=== PATIENT | male | born 1980 | race Caucasian/White ===

== ENCOUNTER 2017-10-06 22:56 | Observation (INO) | payer SELFPAY ==
--- NOTE | 2017-10-06 23:43 | EDPHYS ---
Physician Documentation [facility] Name: Christopher Melvin Age: 37 yrs Sex: Male : 1980 Arrival Date: 10/06/2017 Time: 22:57 Bed 5 Private MD: ED Physician Salomón Shook HPI: 10/06 23:26 This 37 yrs old Male presents to ER via Ambulatory with complaints of Chest santosh Pain > 30 y/o, Numbness Of Arm. 23:26 The patient or guardian reports chest pain that is located primarily in the substernal santosh area, anterior chest wall. The pain radiates to the left arm. Associated signs and symptoms: The patient has no apparent associated signs or symptoms. The chest pain is described as burning, a pressure. Duration: The patient or guardian reports a single episode, that is still ongoing. Modifying factors: The symptoms are alleviated by nothing. the symptoms are aggravated by nothing. Severity of pain: At its worst the pain was moderate in the emergency department the pain is unchanged. The patient has experienced a previous episode. Historical: - Allergies: 23:03 Bactrim DS; aa1 23:03 PENICILLINS; aa1 23:03 Sulfa (Sulfonamide Antibiotics); aa1 - Home Meds: 23:03 Paxil 20 mg Oral tab 1 tab once daily [Active]; aa1 - PMHx: 23:03 Anxiety; chest pain; Depression; aa1 - PSHx: 23:03 Surgical Incision/Drainage of abscess; aa1 - Immunization history:: Flu vaccine is not up to date. - Social history:: Smoking status: Patient/guardian denies using tobacco. - Family history:: not pertinent, pertinent for Father has/had. ROS: 23:26 Constitutional: Negative for fever, chills, and weight loss, Eyes: Negative for injury, santosh pain, redness, and discharge, ENT: Negative for injury, pain, and discharge, Neck: Negative for injury, pain, and swelling, Cardiovascular: Negative for chest pain, palpitations, and edema, Respiratory: Negative for shortness of breath, cough, wheezing, and pleuritic chest pain, Abdomen/GI: Negative for abdominal pain, nausea, vomiting, diarrhea, and constipation, Back: Negative for injury and pain, : Negative for injury, bleeding, discharge, and swelling, MS/Extremity: Negative for injury and deformity, Skin: Negative for injury, rash, and discoloration, Neuro: Negative for headache, weakness, numbness, tingling, and seizure. Exam: 23:26 Constitutional: This is a well developed, well nourished patient who is awake, alert, santosh and in no acute distress. Head/Face: Normocephalic, atraumatic. Eyes: Pupils equal round and reactive to light, extra-ocular motions intact. Lids and lashes normal. Conjunctiva and sclera are non-icteric and not injected. Cornea within normal limits. Periorbital areas with no swelling, redness, or edema. ENT: Nares patent. No nasal discharge, no septal abnormalities noted. Tympanic membranes are normal and external auditory canals are clear. Oropharynx with no redness, swelling, or masses, exudates, or evidence of obstruction, uvula midline. Mucous membranes moist. Neck: Trachea midline, no thyromegaly or masses palpated, and no cervical lymphadenopathy. Supple, full range of motion without nuchal rigidity, or vertebral point tenderness. No Meningismus. Chest/axilla: Normal chest wall appearance and motion. Nontender with no deformity. No lesions are appreciated. Cardiovascular: Regular rate and rhythm with a normal S1 and S2. No gallops, murmurs, or rubs. Normal PMI, no JVD. No pulse deficits. Respiratory: Lungs have equal breath sounds bilaterally, clear to auscultation and percussion. No rales, rhonchi or wheezes noted. No increased work of breathing, no retractions or nasal flaring. Abdomen/GI: Soft, non-tender, with normal bowel sounds. No distension or tympany. No guarding or rebound. No evidence of tenderness throughout. Back: No spinal tenderness. No costovertebral tenderness. Full range of motion. Male : Normal genitalia with no discharge or lesions. Skin: Warm, dry with normal turgor. Normal color with no rashes, no lesions, and no evidence of cellulitis. MS/ Extremity: Pulses equal, no cyanosis. Neurovascular intact. Full, normal range of motion. Neuro: Awake and alert, GCS 15, oriented to person, place, time, and situation. Cranial nerves II-XII grossly intact. Motor strength 5/5 in all extremities. Sensory grossly intact. Cerebellar exam normal. Normal gait. Psych: Awake, alert, with orientation to person, place and time. Behavior, mood, and affect are within normal limits. Vital Signs: 23:03 BP 134 / 94; Pulse 93; Resp 18; Temp 98.4; Pulse Ox 99% on R/A; Weight 104.33 kg; aa1 Height 6 ft. 0 in. (182.88 cm); Pain 8/10; 10/07 00:15 BP 123 / 86; Pulse 74; Resp 12; Pulse Ox 99% ; bp 02:00 BP 118 / 80; Pulse 66; Resp 14; Pulse Ox 99% ; bp 10/06 23:03 Body Mass Index 31.19 (104.33 kg, 182.88 cm) aa1 MDM: 10/06 23:22 Patient medically screened. [facility] 23:49 Data reviewed: vital signs, nurses notes, lab test result(s), EKG, radiologic studies, santosh plain films. 10/06 23:25 Order name: Basic Metabolic Panel [facility] 10/06 23:25 Order name: BNP [facility] 10/06 23:25 Order name: CBC with Diff [facility] 10/06 23:25 Order name: Ckmb [facility] 10/06 23:25 Order name: CPK [facility] 10/06 23:25 Order name: LFT's [facility] 10/06 23:25 Order name: Magnesium [facility] 10/06 23:25 Order name: PT-INR [facility] 10/06 23:25 Order name: Ptt, Activated [facility] 10/06 23:25 Order name: Troponin (emerg Dept Use Only) [facility] 10/06 23:25 Order name: Lipase [facility] 10/06 23:26 Order name: Basic Metabolic Panel ED[facility] 10/06 23:26 Order name: BNP B-Type Natriuretic Peptide [facility] 10/06 23:26 Order name: CBC with Automated Diff [facility] 10/06 23:25 Order name: XRAY Chest (1 view) [facility] 10/06 23:25 Order name: EKG; Complete Time: 23:26 [facility] 10/06 23:25 Order name: Cardiac monitoring; Complete Time: 00:29 [facility] 10/06 23:25 Order name: EKG - Nurse/Tech; Complete Time: 00:29 [facility] 10/06 23:25 Order name: IV Saline Lock; Complete Time: 00:29 [facility] 10/06 23:25 Order name: Labs collected and sent; Complete Time: 00:29 [facility] 10/06 23:25 Order name: O2 Per Protocol; Complete Time: 00:28 [facility] 10/06 23:48 Order name: CONS Physician Consult EDPR 10/07 00:25 Order name: Urine Dipstick--Ancillary (enter results) rg2 10/07 01:13 Order name: Urine Dipstick-Ancillary EDPR 10/06 23:25 Order name: O2 Sat Monitoring; Complete Time: 00:28 [facility] 10/06 23:25 Order name: Urine Dipstick-Ancillary (obtain specimen); Complete Time: 00:24 [facility] Administered Medications: 23:49 Drug: NS 0.9% 1000 ml Route: IV; Rate: 125 ml/hr; Site: right forearm; bp 10/07 00:27 Follow up: IV Status: Infusion continued upon admission bp 10/06 23:49 Drug: Aspirin Chewable Tablet 324 mg Route: PO; bp 10/07 00:27 Follow up: Response: No adverse reaction bp 10/06 23:49 Drug: Lopressor (metoprolol TARTRATE) 50 mg Route: PO; bp 10/07 00:27 Follow up: Response: No adverse reaction bp 10/06 23:50 Drug: morphine 4 mg Route: IVP; Site: right forearm; bp 10/07 00:27 Follow up: Response: Pain is decreased bp 10/06 23:50 Drug: Zofran 4 mg Route: IVP; Site: right forearm; bp 10/07 00:28 Follow up: Response: No adverse reaction bp 00:26 Drug: Lovenox 100 mg Route: Sub-Q; Site: right lower abdomen; bp 00:28 Follow up: Response: No adverse reaction bp Disposition: 10/06/17 23:43 Hospitalization ordered by Zack Ha for Observation. Preliminary diagnosis is Other chest pain. - Bed requested for Telemetry/MedSurg (observation). - Status is Observation. bp - Condition is Fair. - Problem is new. - Symptoms have improved. UTI on Admission? No Signatures: Dispatcher [employer] EDPR Shawna Almanzar, RN RN aa1 Salomón Shook MD MD cha Garcia, Cindy, RN RN cg Randall Bass RN RN bp
--- NOTE | 2017-10-06 23:43 | ER ---
Nurse's Notes [facility] Name: Christopher Melvin Age: 37 yrs Sex: Male : 1980 Arrival Date: 10/06/2017 Time: 22:57 Bed 5 Private MD: Diagnosis: Other chest pain Presentation: 10/06 23:00 Presenting complaint: Patient states: CP that radiates to L shoulder and neck approx 1 aa1 hr [employer]. Transition of care: patient was not received from another setting of care. Onset of symptoms was October 06, 2017. Care prior to arrival: None. 23:00 Method Of Arrival: Ambulatory aa1 23:00 Acuity: CARIE 3 aa1 Triage Assessment: 23:03 General: Appears in no apparent distress. comfortable, Behavior is calm, cooperative, aa1 appropriate for age. Historical: - Allergies: 23:03 Bactrim DS; aa1 23:03 PENICILLINS; aa1 23:03 Sulfa (Sulfonamide Antibiotics); aa1 - Home Meds: 23:03 Paxil 20 mg Oral tab 1 tab once daily [Active]; aa1 - PMHx: 23:03 Anxiety; chest pain; Depression; aa1 - PSHx: 23:03 Surgical Incision/Drainage of abscess; aa1 - Immunization history:: Flu vaccine is not up to date. - Social history:: Smoking status: Patient/guardian denies using tobacco. - Family history:: not pertinent, pertinent for Father has/had. Screenin/31 00:30 Abuse screen: Denies threats or abuse. Denies injuries from another. Nutritional bp screening: No deficits noted. Tuberculosis screening: No symptoms or risk factors identified. Fall Risk None identified. Assessment: 10/06 23:10 General: Appears distressed, comfortable, Behavior is cooperative, appropriate for age, bp anxious. Pain: Complains of pain in chest Pain radiates to neck Pain began 3 hours ago. Neuro: Level of Consciousness is awake, alert, obeys commands, Oriented to person, place, time, situation, Appropriate for age. Cardiovascular: Rhythm is sinus rhythm. Respiratory: Airway is patent Respiratory effort is even, unlabored, Respiratory pattern is regular, symmetrical. GI: No deficits noted. : No signs and/or symptoms were reported regarding the genitourinary system. EENT: No deficits noted. Derm: No deficits noted. Musculoskeletal: Circulation, motion, and sensation intact. Range of motion: intact in all extremities. Vital Signs: 23:03 BP 134 / 94; Pulse 93; Resp 18; Temp 98.4; Pulse Ox 99% on R/A; Weight 104.33 kg; aa1 Height 6 ft. 0 in. (182.88 cm); Pain 8/10; 10/07 00:15 BP 123 / 86; Pulse 74; Resp 12; Pulse Ox 99% ; bp 02:00 BP 118 / 80; Pulse 66; Resp 14; Pulse Ox 99% ; bp 10/06 23:03 Body Mass Index 31.19 (104.33 kg, 182.88 cm) aa1 ED Course: 10/06 22:57 Patient arrived in ED. am2 23:01 Triage completed. aa1 23:03 Arm band placed on left wrist. aa1 23:17 Randall Bass, NICK is Primary Nurse. bp 23:22 Salomón Shook MD is Attending Physician. [facility] 23:30 Inserted saline lock: 20 gauge in right forearm, using aseptic technique. bp 23:42 Zack Ha MD is Hospitalizing Provider. [facility] 10/07 00:03 X-ray completed. Portable x-ray completed in exam room. Patient tolerated procedure kc2 well. 00:30 Patient has correct armband on for positive identification. Placed in gown. Bed in low bp position. Call light in reach. Side rails up X2. youth nutritional monitor on. Pulse ox on. NIBP on. 00:30 No provider procedures requiring assistance completed. Patient admitted, IV remains in bp place. Patient maintains SpO2 saturation greater than 95% on room air. Administered Medications: 10/06 23:49 Drug: NS 0.9% 1000 ml Route: IV; Rate: 125 ml/hr; Site: right forearm; bp 10/07 00:27 Follow up: IV Status: Infusion continued upon admission bp 10/06 23:49 Drug: Aspirin Chewable Tablet 324 mg Route: PO; bp 10/07 00:27 Follow up: Response: No adverse reaction bp 10/06 23:49 Drug: Lopressor (metoprolol TARTRATE) 50 mg Route: PO; bp 10/07 00:27 Follow up: Response: No adverse reaction bp 10/06 23:50 Drug: morphine 4 mg Route: IVP; Site: right forearm; bp 10/07 00:27 Follow up: Response: Pain is decreased bp 10/06 23:50 Drug: Zofran 4 mg Route: IVP; Site: right forearm; bp 10/07 00:28 Follow up: Response: No adverse reaction bp 00:26 Drug: Lovenox 100 mg Route: Sub-Q; Site: right lower abdomen; bp 00:28 Follow up: Response: No adverse reaction bp Outcome: 10/06 23:43 Decision to Hospitalize by Provider. santosh 10/07 02:17 Admitted to Tele accompanied by tech, via wheelchair, room 213, with chart, Report bp called to AI ROMERO Condition: stable Instructed on the need for admit. 02:31 Patient left the ED. bp Signatures: Shawna Almanzar, RN RN aa1 Salomón Shook MD MD cha Carr, Kelsie 2 Domenica Pop am2 Randall Bass RN RN bp
[2017-10-06 23:56] LABS: Absolute Lymphocytes (CBC) 2.1 K/uL (0.7-4.9); Absolute Monocytes 0.6 K/uL (0.1-1.3); Absolute Neutrophil 3.7 K/uL (1.8-8.0); Basophils % 0.5 % (0-1.3); Hematocrit 40.6 % (39.6-49.0); MCH 31.6 pg (27.0-35.0); MCV 92.6 fL (80-100); MPV 10.1 fL (7.6-11.3); Monocytes % 9.1 % (3.3-12.3); RBC Red Blood Cell Count 4.38 M/uL (4.33-5.43)
[2017-10-07] LABS: Protime INR 1.09
[2017-10-07] MEDS ORDERED: ASPIRIN 81 MG CHEWABLE TABLET ONE
[2017-10-07 00:01] LABS: Bicarbonate 27 mEq/L (21-31); Glucose Level 108 mg/dL (65-120); Lipase 14 U/L (22-51); Potassium 3.6 mEq/L (3.6-5.0); Sodium Level 138 mEq/L (135-145)
[2017-10-07] MEDS ORDERED: NA CHLORIDE 0.9% 1,000 ML ONE (00:01)
[2017-10-07] MEDS ORDERED: MORPHINE 4 MG/ML SYR ONE (00:01)
[2017-10-07] MEDS ORDERED: ONDANSETRON 4 MG/2 ML VIAL ONE (00:01)
[2017-10-07] MEDS ORDERED: METOPROLOL TAR 50 MG TAB ONE (00:01)
[2017-10-07 00:08] LABS: ALT/SGPT 28 IU/L (10-60); AST/SGOT 27 IU/L (10-42); Albumin 4.4 g/dL (3.2-5.5); Alkaline Phosphatase 62 IU/L (42-121); BUN Blood Urea Nitrogen 9 mg/dL (6-20); Bilirubin Direct 0.1 mg/dL (0-0.2); Bilirubin Total 0.9 mg/dL (0.3-1.2); Creatine Phosphokinase 74 IU/L (22-269); Glomerular Filtration Rate > 90 mL/min (=/>90); Magnesium 1.6 mg/dL (1.8-2.5); Protein, Total 7.2 g/dL (6.0-8.3)
[2017-10-07 00:09] LABS: CKMB Creatine Kinase MB 0.8 ng/ml (0.3-4.0)
[2017-10-07] MEDS ORDERED: ENOXAPARIN 100 MG/ML SYR SQ ONE (00:38)
[2017-10-07] MEDS ORDERED: MORPHINE 4 MG/ML SYR IV PRN (00:41)
[2017-10-07] MEDS ORDERED: ALPRAZOLAM 0.25 MG TABLET PO PRN (00:41)
[2017-10-07] MEDS ORDERED: ACETAMINOPHEN 500 MG TAB PO PRN (00:41)
[2017-10-07 01:13] LABS: Urine Blood NEGATIVE (NEG); Urine Glucose NEGATIVE (NEG); Urine Protein NEGATIVE (NEG); Urine Specific Gravity 1.015 (1.005-1.030); Urine pH 7.5 (5.0-7.0)
[2017-10-07 03:00] VITALS: BMI 33.5
[2017-10-07 04:44] VITALS: O2SAT 98
[2017-10-07] MEDS ORDERED: SODIUM CHLORIDE 0.9% 10ML INJ IV PRN (07:25)
[2017-10-07] MEDS ORDERED: PANTOPRAZOLE 40 MG INJ IVP ONE (07:25)
[2017-10-07] MEDS ORDERED: HYDROCORTISONE SUC 100 MG INJ IV ONE (07:25)
--- NOTE | 2017-10-07 07:43 | P.HP ---
Certification for Inpatient Patient admitted to: Observation With expected LOS: <2 Midnights Patient will require the following post-hospital care: None Practitioner: I am a practitioner with admitting privileges, knowledge of patient current condition, hospital course, and medical plan of care. Services: Services provided to patient in accordance with Admission requirements found in Title 42 Section 412.3 of the Code of Federal Regulations Patient History Date of Service: 10/07/17 Reason for admission: Chest pain rule out acute coronary syndrome History of Present Illness: Patient is a 37-year-old gentleman who came into the hospital with chest discomfort. Pain was mainly in the sternal region and the left shoulder. Patient was recently in the hospital couple months ago and took her medicine stress test did not reveal any abnormalities. Patient states this pain never went away completely. It was improved however over the last 24 hr the pain returned, and it has gotten progressively worse so he came into the hospital for further evaluation. In the emergency room his EKG and troponins have not revealed any abnormalities. His pain is not reproducible. He said it does not worsen with movement. He has no siblings with heart disease although he does have parents to have some cardiac issues. At this time he will be admitted for serial troponins and EKG. If his workup is negative he should be able to go home. Allergies Penicillins Allergy (Verified 10/07/17 02:44) Unknown sulfamethoxazole [From Bactrim] Allergy (Verified 11/21/16 00:47) SWELLING / HIVES trimethoprim [From Bactrim] Allergy (Verified 11/21/16 00:47) SWELLING / HIVES Sulfa (Sulfonamid Allergy (Uncoded 10/07/17 02:35) Unknown Home Medications: Paroxetine HCl [Paxil*] 20 mg PO DAILY #30 tab 08/28/17 - Past Medical/Surgical History Has patient received pneumonia vaccine in the past: No Diabetic: No -: Depression -: Urethritis -: Anxiety -: Groin infection 2009 - Family History Mother Medical History: Hypertension, Diabetes Father Medical History: Hypertension - Social History Smoking Status: Current some day smoker Alcohol use: No CD- Drugs: No Place of Residence: Home Review of Systems 10-point ROS is otherwise unremarkable Physical Examination - Vital Signs Temperature: 98 F Blood Pressure: 123/75 Pulse: 63 Respirations: 16 Pulse Ox (%): 98 - Physical Exam General: Alert, In no apparent distress, Oriented x3 HEENT: Atraumatic, PERRLA, Mucous membr. moist/pink, EOMI, Sclerae nonicteric Neck: Supple, 2+ carotid pulse no bruit, No LAD, Without JVD or thyroid abnormality Respiratory: Clear to auscultation bilaterally, Normal air movement Cardiovascular: Regular rate/rhythm, Normal S1 S2, No murmurs Gastrointestinal: Normal bowel sounds, Soft and benign, Non-distended, No tenderness Musculoskeletal: No clubbing, No swelling, No tenderness Integumentary: No rashes Neurological: Normal gait, Normal speech, Normal strength at 5/5 x4 extr, Normal tone, Sensation intact, Cranial nerves 3-12 intact, Normal affect Lymphatics: No axilla or inguinal lymphadenopathy - Studies Laboratory Data (last 24 hrs) 10/06/17 23:35: PT 12.9 H, INR 1.09, APTT 30.8 10/06/17 23:35: WBC 6.5, Hgb 13.8, Hct 40.6, Plt Count 201 10/06/17 23:35: B-Natriuretic Peptide < 10 10/06/17 23:35: Sodium 138, Potassium 3.6, BUN 9, Creatinine 0.88, Glucose 108, Magnesium 1.6 L, Total Bilirubin 0.9, AST 27, ALT 28, Alkaline Phosphatase 62, Lipase 14 L Assessment & Plan - Problems (Diagnosis) (1) Chest pain, rule out acute myocardial infarction Current Visit: Yes Status: Acute (2) GERD (gastroesophageal reflux disease) Onset Date: 03/27/17 Current Visit: No Status: Chronic (3) Hypertension Onset Date: 03/27/17 Current Visit: No Status: Chronic Qualifiers: (4) Tobacco abuse Onset Date: 04/17/14 Current Visit: No Status: Chronic - Plan 1. Serial troponins and EKG 2. Recent stress test was normal. Cardiac workup has been negative. 3. Will start patient on anti-inflammatory. May add a muscle relaxer. 4. If his cardiac workup is negative he should be able to go home for outpatient follow-up. Discharge Plan: Home Plan to discharge in: 24 Hours - Advance Directives Does patient have a Living Will: No Does patient have a Durable POA for Healthcare: No - Code Status/Comfort Care Code Status Assessed: Yes Code Status: Full Code Critical Care: No Time Spent Managing PTS Care (In Minutes): 50
[2017-10-07] MEDS ORDERED: INFLUENZA VACCINE (for 5y+) 0.5 ML DOSE IMVAC ONE (08:00)
[2017-10-07 08:59] VITALS: BP 115/70; TEMP 97.5
[2017-10-07] MEDS ORDERED: METOPROLOL TAR 50 MG TAB PO SCH (09:00)
[2017-10-07] MEDS ORDERED: ASPIRIN EC 81 MG TAB PO SCH (09:00)
[2017-10-07] MEDS ORDERED: ENOXAPARIN 40 MG/0.4 ML SQ SCH (09:00)
--- NOTE | 2017-10-07 12:31 | RAD REPORT ---
EXAM DESCRIPTION: RAD - Chest Single View - 10/07/2017 2:57 am CLINICAL HISTORY: Chest pain. COMPARISON: 08/27/2017 FINDINGS: Portable technique limits examination quality. The lungs are grossly clear. The heart is normal in size. No displaced fractures. IMPRESSION: No acute intrathoracic process suspected.
--- NOTE | 2017-10-08 12:52 | EKG ---
Test Date: 2017-10-06 Test Time: 23:23:07 Night Time Nanny: BP MEASUREMENT RESULTS: Intervals: Rate: 78 OH: 186 QRSD: 88 QT: 368 QTc: 419 [place]: P: 61 OH: 186 QRS: 60 T: 63 INTERPRETIVE STATEMENTS: Normal sinus rhythm Normal ECG Compared to ECG 08/27/2017 09:30:53 No significant changes Electronically Signed On 10-08-17 12:51:31 CDT by Francisco Cruz
== END 2017-10-07 13:15 | disposition home or self-care (01) ==
LOC: ER 22:56 → ERHOLD 23:45 → 2ND 10-07 01:13
PROVIDERS: ADMIT Hospitalist; ATTEND Hospitalist
DX: F17.210 Nicotine dependence, cigarettes, uncomplicated; F41.8 Other specified anxiety disorders; R07.9 Chest pain, unspecified; K21.9 Gastro-esophageal reflux disease without esophagitis; Z88.0 Allergy status to penicillin; Z88.2 Allergy status to sulfonamides; I10 Essential (primary) hypertension
CPT/HCPCS: 36415; 71045; 80048; 80061; 80076; 81003; 82550; 82553; 83690; 83735; 83880; 84484; 85025; 85610; 85730; 93005; 96361; 96372; 96374; 96375; 99285; C9113; G0378; J1650; J1720; J2405; J7030

== ENCOUNTER 2018-10-09 20:54 | Emergency (ER) | payer SELFPAY ==
[2018-10-09 22:08] LABS: Barbiturates NEGATIVE (NEGATIVE); Benzodiazepines NEGATIVE (NEGATIVE); Cocaine NEGATIVE (NEGATIVE); METHAMPHETAM NEGATIVE (NEGATIVE); Methadone NEGATIVE (NEGATIVE); Opiates NEGATIVE (NEGATIVE); Phencyclidine NEGATIVE (NEGATIVE); THC Cannibis NEGATIVE (NEGATIVE)
[2018-10-09 22:15] LABS: Urine Blood NEGATIVE (NEG); Urine Glucose TRACE (NEG); Urine Protein NEGATIVE (NEG); Urine Specific Gravity 1.025 (1.005-1.030); Urine pH 5.5 (5.0-7.0)
[2018-10-09 22:28] LABS: Absolute Lymphocytes (CBC) 3.2 K/uL (0.7-4.9); Absolute Monocytes 0.9 K/uL (0.1-1.3); Absolute Neutrophil 5.1 K/uL (1.8-8.0); Basophils % 0.7 % (0-1.3); Eosinophils % 1.9 % (0-4.4); Hematocrit 42.6 % (39.6-49.0); Lymphocytes % 33.7 % (15.3-44.8); Monocytes % 9.6 % (3.3-12.3); RBC Red Blood Cell Count 4.44 M/uL (4.33-5.43)
[2018-10-09 22:33] LABS: Protime INR 0.99
[2018-10-09 22:47] LABS: ALT/SGPT 39 U/L (12-78); AST/SGOT 21 U/L (15-37); Albumin 3.9 g/dL (3.4-5.0); Alkaline Phosphatase 79 U/L (45-117); BUN Blood Urea Nitrogen 16 mg/dL (7-18); Bicarbonate 28 mmol/L (21-32); Bilirubin Direct < 0.1 mg/dL (0-0.2); Bilirubin Total 0.2 mg/dL (0.2-1.0); Glucose Level 102 mg/dL (74-106); Magnesium 1.8 mg/dL (1.8-2.4); NT PRO-BNP 9 pg/mL (<125); Potassium 3.8 mmol/L (3.5-5.1); Protein, Total 7.5 g/dL (6.4-8.2); Sodium Level 140 mmol/L (136-145); Troponin (Emerg Dept Use Only) < 0.02 ng/mL (0.0-0.045)
[2018-10-09] MEDS ORDERED: KETOROLAC 30 MG/ML INJ ONE (23:26)
--- NOTE | 2018-10-10 00:53 | EDPHYS ---
Physician Documentation [facility] Name: Christopher Melvin Age: 38 yrs Sex: Male : 1980 Arrival Date: 10/09/2018 Time: 20:56 Bed 25 Private MD: ED Physician Sathish Terrazas HPI: 10/10 03:20 This 38 yrs old Male presents to ER via Wheelchair with complaints of tw4 head,neck,back,chest pain. 03:20 The patient or guardian reports chest pain that is located primarily in the anterior tw4 chest wall. Onset: today. The pain does not radiate. Associated signs and symptoms: The patient has no apparent associated signs or symptoms. The chest pain is described as sharp. Severity of pain: At its worst the pain was mild in the emergency department the pain. Historical: - Allergies: 10/09 21:13 Bactrim DS; ca1 21:13 PENICILLINS; ca1 21:13 Sulfa (Sulfonamide Antibiotics); ca1 - Home Meds: 21:13 Paxil 20 mg Oral tab 1 tab once daily [Active]; Meclizine Oral [Active]; ca1 - PMHx: 21:13 Anxiety; chest pain; Depression; ca1 - PSHx: 21:13 Surgical Incision/Drainage of abscess; ca1 - Immunization history:: Flu vaccine is not up to date. - Social history:: Smoking status: Patient uses tobacco products, switched to vape 11 months ago. . - Ebola Screening: : No symptoms or risks identified at this time. ROS: 10/10 03:20 Constitutional: Negative for fever, chills, and weight loss, Eyes: Negative for injury, tw4 pain, redness, and discharge, Respiratory: Negative for shortness of breath, cough, wheezing, and pleuritic chest pain, Abdomen/GI: Negative for abdominal pain, nausea, vomiting, diarrhea, and constipation. MS/Extremity: Negative for injury and deformity, Skin: Negative for injury, rash, and discoloration, Neuro: Negative for headache, weakness, numbness, tingling, and seizure. Cardiovascular: Positive for chest pain, Negative for edema, orthopnea, paroxysmal nocturnal dyspnea. Exam: 03:20 Constitutional: This is a well developed, well nourished patient who is awake, alert, tw4 and in no acute distress. Head/Face: Normocephalic, atraumatic. Chest/axilla: Normal chest wall appearance and motion. Nontender with no deformity. No lesions are appreciated. Cardiovascular: Regular rate and rhythm with a normal S1 and S2. No gallops, murmurs, or rubs. Normal PMI, no JVD. No pulse deficits. Respiratory: Lungs have equal breath sounds bilaterally, clear to auscultation and percussion. No rales, rhonchi or wheezes noted. No increased work of breathing, no retractions or nasal flaring. Abdomen/GI: Soft, non-tender, with normal bowel sounds. No distension or tympany. No guarding or rebound. No evidence of tenderness throughout. Back: No spinal tenderness. No costovertebral tenderness. Full range of motion. MS/ Extremity: Pulses equal, no cyanosis. Neurovascular intact. Full, normal range of motion. Neuro: Awake and alert, GCS 15, oriented to person, place, time, and situation. Cranial nerves II-XII grossly intact. Motor strength 5/5 in all extremities. Sensory grossly intact. Cerebellar exam normal. Normal gait. Vital Signs: 10/09 21:13 BP 147 / 97; Pulse 112; Resp 19; Temp 98.4; Pulse Ox 99% on R/A; Weight 108.86 kg; ca1 Height 6 ft. 0 in. (182.88 cm); Pain 8/10; 22:26 BP 128 / 86 LA; Pulse 91; Resp 19 S; Pulse Ox 100% on R/A; rv 23:00 BP 112 / 58 LA; Pulse 88; Resp 18 S; Pulse Ox 100% on R/A; rv 23:30 BP 136 / 77; Pulse 89; Resp 17 S; Pulse Ox 100% on R/A; rv 10/10 00:00 BP 104 / 63 LA; Pulse 83; Resp 17 S; Pulse Ox 100% on R/A; rv 00:30 BP 122 / 78 LA; Pulse 77; Resp 17 S; Pulse Ox 100% on R/A; rv 01:00 BP 123 / 68 LA; Pulse 81; Resp 18 S; Pulse Ox 100% on R/A; rv 10/09 21:13 Body Mass Index 32.55 (108.86 kg, 182.88 cm) ca1 MDM: 10/09 21:23 Patient medically screened. tw4 10/10 03:20 Differential diagnosis: abnormal EKG, acute myocardial infarction, acute pericarditis, tw4 cholecystitis, Cholelithiasis costochondritis, pulmonary embolus, stable angina, thoracic aortic disection, unstable angina. Data reviewed: vital signs, nurses notes. Data interpreted: Pulse oximetry: Interpretation:. Test interpretation: by ED physician or midlevel provider: ECG. Counseling: I had a detailed discussion with the patient and/or guardian regarding: the historical points, exam findings, and any diagnostic results supporting the discharge/admit diagnosis. 10/09 21:22 Order name: Basic Metabolic Panel; Complete Time: 00:30 10/10 00:30 Interpretation: Normal except: GFR 87. 10/09 21:22 Order name: CBC with Diff; Complete Time: 00:30 [facility] 10/10 00:30 Interpretation: Normal except: MCV 96.0. 10/09 21:22 Order name: LFT's; Complete Time: 00:30 [facility] 10/10 00:30 Interpretation: Normal except: GLOB 3.6. 10/09 21:22 Order name: Magnesium; Complete Time: 00:30 10/10 00:30 Interpretation: Within normal limits: MG 1.8. 10/09 21:22 Order name: NT PRO-BNP; Complete Time: 00:30 [facility] 10/10 00:30 Interpretation: Within normal limits: NT PRO-BNP 9. 10/09 21:22 Order name: PT-INR; Complete Time: 00:30 10/10 00:30 Interpretation: Within normal limits: PT 11.7. 10/09 21:22 Order name: Troponin (emerg Dept Use Only); Complete Time: 00:31 10/10 00:31 Interpretation: Within normal limits: TROPED < 0.02. 10/09 21:22 Order name: XRAY Chest (1 view) 10/09 21:22 Order name: EKG; Complete Time: 21:23 10/09 21:22 Order name: Cardiac monitoring; Complete Time: 21:39 10/09 21:22 Order name: EKG - Nurse/Tech; Complete Time: 21:39 10/09 21:22 Order name: Urine Drug Screen; Complete Time: 00:31 10/10 00:31 Interpretation: Within normal limits. tw4 10/09 21:41 Order name: Urine Dipstick--Ancillary (enter results) mw2 10/09 21:22 Order name: IV Saline Lock; Complete Time: 21:39 tw4 10/09 21:22 Order name: Labs collected and sent; Complete Time: 21:39 tw4 10/09 21:22 Order name: O2 Per Protocol; Complete Time: 21:39 tw4 10/09 21:22 Order name: O2 Sat Monitoring; Complete Time: 21:39 tw4 Administered Medications: 10/09 23:16 Drug: TORadol 30 mg Route: IVP; Site: right antecubital; rv 23:57 Follow up: Response: Pain is unchanged, physician notified Disposition: 10/10/18 00:53 Discharged to Home. Impression: Chest pain, unspecified. - Condition is Stable. - Discharge Instructions: Nonspecific Chest Pain, Chest Wall Pain, Pain Without a Known Cause. - Prescriptions for Ibuprofen 600 mg Oral Tablet - take 1 tablet by ORAL route every 6 hours As needed take with food; 30 tablet. - Medication Reconciliation Form, Thank You Letter, Antibiotic Education, Prescription Opioid Use form. - Follow up: Private Physician; When: Upon discharge from the Emergency Department; Reason: If symptoms return, Recheck today's complaints, Continuance of care. - Problem is new. - Symptoms have improved. Signatures: Dispatcher [employer] Sathish Sarmiento MD MD tw4 Pablo Pena RN RN rv Acob, Cheryl, RN RN [facility] Kristal Foreman Corrections: (The following items were deleted from the chart) 10/10 01:03 00:53 10/10/2018 00:53 Discharged to Home. Impression: Chest pain, unspecified. rv Condition is Stable. Forms are Medication Reconciliation Form, Thank You Letter, Antibiotic Education, Prescription Opioid Use. Follow up: Private Physician; When: Upon discharge from the Emergency Department; Reason: If symptoms return, Recheck today's complaints, Continuance of care. Problem is new. Symptoms have improved. tw4
--- NOTE | 2018-10-10 00:53 | ER ---
Nurse's Notes [facility] Name: Christopher Melvin Age: 38 yrs Sex: Male : 1980 Arrival Date: 10/09/2018 Time: 20:56 Bed 25 Private MD: Diagnosis: Chest pain, unspecified Presentation: 10/09 21:00 Presenting complaint: Patient states: C/O chest pain since 1900 last night, feels like ca1 somebody pressing on the left side of his sternum. C/O of neck pain that feels like pushing upwards to the head. Transition of care: patient was not received from another setting of care. Onset of symptoms was October 08, 2018 at 19:00. Risk Assessment: Do you want to hurt yourself or someone else? Patient reports no desire to harm self or others. Initial Sepsis Screen: Does the patient meet any 2 criteria? No. Patient's initial sepsis screen is negative. Does the patient have a suspected source of infection? No. Patient's initial sepsis screen is negative. Care prior to arrival: None. 21:00 Method Of Arrival: Wheelchair ca1 21:00 Acuity: CARIE 3 ca1 Triage Assessment: 21:13 General: Appears in no apparent distress. comfortable, Behavior is calm, cooperative, ca1 appropriate for age. Pain: Complains of pain in chest Pain radiates to back Pain currently is 8 out of 10 on a pain scale. Quality of pain is described as pressure, Pain began 1 day ago. Historical: - Allergies: 21:13 Bactrim DS; ca1 21:13 PENICILLINS; ca1 21:13 Sulfa (Sulfonamide Antibiotics); ca1 - Home Meds: 21:13 Paxil 20 mg Oral tab 1 tab once daily [Active]; Meclizine Oral [Active]; ca1 - PMHx: 21:13 Anxiety; chest pain; Depression; ca1 - PSHx: 21:13 Surgical Incision/Drainage of abscess; ca1 - Immunization history:: Flu vaccine is not up to date. - Social history:: Smoking status: Patient uses tobacco products, switched to vape 11 months ago. . - Ebola Screening: : No symptoms or risks identified at this time. Screenin:15 Abuse screen: Denies threats or abuse. Denies injuries from another. Nutritional ca1 screening: No deficits noted. Tuberculosis screening: No symptoms or risk factors identified. Fall Risk None identified. Assessment: 21:15 General: Appears in no apparent distress. comfortable, Behavior is calm, cooperative, ca1 appropriate for age. Pain: Complains of pain in chest Pain radiates to back Pain currently is 8 out of 10 on a pain scale. Quality of pain is described as pressure, Pain began. Neuro: Level of Consciousness is awake, alert, obeys commands, Oriented to person, place, time, situation. Cardiovascular: Heart tones S1 S2 present Capillary refill < 3 seconds Patient's skin is warm and dry. Respiratory: Airway is patent Respiratory effort is even, unlabored, Respiratory pattern is regular, symmetrical, Breath sounds are clear bilaterally. GI: Abdomen is flat, non-distended, Bowel sounds present X 4 quads. Abd is soft and non tender X 4 quads. GI: Reports nausea. : No deficits noted. No signs and/or symptoms were reported regarding the genitourinary system. EENT: No deficits noted. No signs and/or symptoms were reported regarding the EENT system. Derm: Skin is intact, is healthy with good turgor, Skin is pink, warm \T\ dry. Musculoskeletal: Circulation, motion, and sensation intact. Capillary refill < 3 seconds. 22:00 Reassessment: Patient appears in no apparent distress at this time. Patient and/or ca1 family updated on plan of care and expected duration. Pain level reassessed. Patient is alert, oriented x 3, equal unlabored respirations, skin warm/dry/pink. 23:00 Reassessment: Patient appears in no apparent distress at this time. Patient is alert, ca1 oriented x 3, equal unlabored respirations, skin warm/dry/pink. Vital Signs: 21:13 BP 147 / 97; Pulse 112; Resp 19; Temp 98.4; Pulse Ox 99% on R/A; Weight 108.86 kg; ca1 Height 6 ft. 0 in. (182.88 cm); Pain 8/10; 22:26 BP 128 / 86 LA; Pulse 91; Resp 19 S; Pulse Ox 100% on R/A; rv 23:00 BP 112 / 58 LA; Pulse 88; Resp 18 S; Pulse Ox 100% on R/A; rv 23:30 BP 136 / 77; Pulse 89; Resp 17 S; Pulse Ox 100% on R/A; rv 04/03 00:00 BP 104 / 63 LA; Pulse 83; Resp 17 S; Pulse Ox 100% on R/A; rv 00:30 BP 122 / 78 LA; Pulse 77; Resp 17 S; Pulse Ox 100% on R/A; rv 01:00 BP 123 / 68 LA; Pulse 81; Resp 18 S; Pulse Ox 100% on R/A; rv 0402 21:13 Body Mass Index 32.55 (108.86 kg, 182.88 cm) ca1 ED Course: 10/09 20:56 Patient arrived in ED. es 21:09 Jenna Bryson, RN is Primary Nurse. ca1 21:11 Triage completed. ca1 21:13 Arm band placed on right wrist. EKG completed in triage. Results shown to MD. ca1 21:15 Patient has correct armband on for positive identification. Placed in gown. Bed in low ca1 position. Call light in reach. Side rails up X 1. lead informatica developer on. Pulse ox on. NIBP on. Warm blanket given. 21:23 Sathish Terrazas MD is Attending Physician. tw4 21:43 XRAY Chest (1 view) In Process Unspecified. EDMS 21:54 Missed attempt(s): 22 gauge in left hand. lt1 21:55 Missed attempt(s): 20 gauge in right antecubital area. lt1 22:18 Inserted saline lock: 22 gauge in right antecubital area, using aseptic technique. rv Blood collected. 10/10 01:02 No provider procedures requiring assistance completed. IV discontinued, bleeding rv controlled, No redness/swelling at site. Pressure dressing applied. Administered Medications: 10/09 23:16 Drug: TORadol 30 mg Route: IVP; Site: right antecubital; rv 23:57 Follow up: Response: Pain is unchanged, physician notified Outcome: 10/10 00:53 Discharge ordered by . tw4 01:02 Discharged to home ambulatory. rv 01:02 Condition: good 01:02 Discharge instructions given to patient, Instructed on discharge instructions, follow up and referral plans. medication usage, Demonstrated understanding of instructions, follow-up care, medications, Prescriptions given X 1. 01:03 Patient left the ED. rv Signatures: Dispatcher [employer] EDMS Dyan Mueller Winsy Sathish Terrazas MD MD tw4 Pablo Pena RN RN rv AcJenna townsend, RN RN ca1 Rosa, Alma lt1
--- NOTE | 2018-10-10 08:18 | RAD REPORT ---
EXAM DESCRIPTION: RAD - Chest Single View - 10/09/2018 9:44 pm CLINICAL HISTORY: CHEST PAIN Chest pain. COMPARISON: Chest Single View dated 10/06/2017; Chest Single View dated 08/27/2017; Chest Single View dated 07/09/2017; Chest Single View dated 04/29/2017 FINDINGS: Portable technique limits examination quality. The lungs are grossly clear. The heart is normal in size. No displaced fractures. IMPRESSION: No acute intrathoracic process suspected.
[2018-10-10 12:00] VITALS: TEMP 98.4
[2018-10-10 12:02] VITALS: O2SAT 100
[2018-10-10 12:09] VITALS: BP 123/68
== END 2018-10-10 01:03 | disposition home or self-care (01) ==
LOC: ER 20:54
DX: R07.9 Chest pain, unspecified (principal); F41.9 Anxiety disorder, unspecified; F32.9 Major depressive disorder, single episode, unspecified; Z88.1 Allergy status to other antibiotic agents; Z88.0 Allergy status to penicillin; Z88.2 Allergy status to sulfonamides; F17.290 Nicotine dependence, other tobacco product, uncomplicated
CPT/HCPCS: 36415; 71045; 80048; 80076; 80307; 81003; 83735; 83880; 84484; 85025; 85610; 93005; 96374; 99284